=== PATIENT | female | born 1985 | race Caucasian/White ===

== ENCOUNTER → 2022-03-17 08:36 | Outpatient (CLI) | payer BC, SELFPAY ==
[2022-03-17 11:39] LABS: SARS-CoV-2 RNA PCR Negative
== END ==
PROVIDERS: Physician Assistant; PCP Family Medicine; Visit Provider Family Medicine
DX: R05.9 Cough, unspecified (principal); R68.89 Other general symptoms and signs; Z20.822 Contact with and (suspected) exposure to COVID-19
CPT/HCPCS: C9803; U0003; U0005

== ENCOUNTER 2024-09-09 11:04 | Outpatient (CLI) | payer BC, SELFPAY ==
--- NOTE | ~2024-09-09 | US_ITS ---
EXAMINATION:US venous doppler LE RT INDICATION:Leg swelling TECHNIQUE: Multiple grayscale, color flow and Doppler images of the right lower extremity deep venous systems were obtained and reviewed. COMPARISON:No prior studies for comparison. FINDINGS: The common femoral, superficial femoral and popliteal veins demonstrate normal respiratory variation, augmentation and compressibility. Color flow is also seen within the posterior tibial, pe roneal, greater saphenous and profunda veins. IMPRESSION: 1: No lower extremity deep venous thrombosis. Reviewed, dictated and finalized at location B.
== END 2024-09-09 11:05 | disposition home or self-care (01) ==
LOC: ANHIMG 11:09
PROVIDERS: PCP Family Medicine; Visit Provider Physician Assistant
DX: M79.604 Pain in right leg (principal); M79.89 Other specified soft tissue disorders
CPT/HCPCS: 93971

== ENCOUNTER 2024-09-16 13:12 | Outpatient (CLI) | payer BC, SELFPAY ==
--- NOTE | ~2024-09-16 | US_ITS ---
EXAMINATION: US soft tissue LE RT DATE: 09/16/2024 13:48 INDICATION: Right calf localized swelling. TECHNIQUE: Multiple grayscale and Doppler ultrasound images of the right lower limb were obtained. COMPARISON: Ultrasound 09/09/2024 FINDINGS: There is subcutaneous edema in lateral right calf in the patient's area of concern. IMPRESSION: 1. Subcutaneous edema in lateral right calf in the patient's area of concern. Reviewed, dictated and finalized at location A.
== END 2024-09-16 13:13 | disposition home or self-care (01) ==
LOC: ANHIMG 13:13
PROVIDERS: PCP Family Medicine; Visit Provider Physician Assistant Medical
DX: R60.0 Localized edema (principal)
CPT/HCPCS: 76882

== ENCOUNTER 2025-09-25 08:58 | Outpatient (CLI) | payer BC, SELFPAY ==
--- NOTE | ~2025-09-25 | MMUS_ITS ---
EXAMINATION: MM diagnostic miky LT w chidi, US breast LT limited INDICATION: 40-year old female; BI-RADS 0, callback from screening to evaluate LEFT breast focal asymmetry. COMPARISON: 08/15/2025 TECHNIQUE: Digital breast tomosynthesis True lateral and spot compression CC and MLO views of the LEFT breast were obtained with computer-aided detection to assist in interpretation of the study. MAMMOGRAM FINDINGS: The breasts are heterogeneously dense, which may obscure small masses. A circumscribed mass persists in the area of concern in the superior medial in the posterior third. LEFT BREAST ULTRASOUND FINDINGS: Targeted evaluation of the area of concern was completed. There is a 0.7 x 0.7 x 0.3 cm Hypoechoic mass with echogenic center at 10:00 location 5 cm from the nipple compatible with an intramammary lymph node that correlates to the area of Mammographic finding. IMPRESSION: Findings compatible with intramammary lymph node correlates to the mammographic finding in the LEFT breast at 10:00 location. No further investigation is necessary. RECOMMENDATION: Annual screening bilateral mammography in 12 months. BI-RADS 2, BENIGN Reviewed, dictated and finalized at location B. 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 No further investigation is nece ssary. RECOMMENDATION: Annual screening bilateral mammography in 12 months. BI-RADS 2, BENIGN
== END 2025-09-25 08:59 | disposition home or self-care (01) ==
LOC: MICIMG 08:59
PROVIDERS: PCP Family Medicine
DX: R92.8 Other abnormal and inconclusive findings on diagnostic imaging of breast (principal)
CPT/HCPCS: 76642; 77061; 77065; G0279